=== PATIENT | female | born 1990 | race Two or more races ===

== ENCOUNTER 2018-03-15 23:16 | Emergency (ER) | payer SELFPAY ==
[~2018-03-15] VITALS: Ht 154.9 cm; Wt 73.3 kg
[2018-03-15 23:19] VITALS: BP 126/81
== END 2018-03-16 00:18 ==
LOC: ED 23:59
DX: S29.011A Strain of muscle and tendon of front wall of thorax, initial encounter (principal); X58.XXXA Exposure to other specified factors, initial encounter; Y93.89 Activity, other specified; Y92.89 Other specified places as the place of occurrence of the external cause; Y99.8 Other external cause status
CPT/HCPCS: 99281